=== PATIENT | male | born 1940 | race Caucasian/White ===

== ENCOUNTER → 2017-11-18 | Outpatient (CLI) | payer MEDICARE, BC ==
[~2017-11-18] MED LIST: CALCIUM CITRAT200 MG PO; FERROUS SULFATE65 MG PO; FOLIC ACID 40400 MCG PO; NEURONTIN600 MG/TAB; PRILOSEC 20MG20 MG PO; VITAMIN C500 MG PO; ZESTORETIC 12.51 TAB; [UNRECOGNIZED DRUG - OTHER] PO
[2017-11-18 10:43] LABS: HEMATOCRIT 41.6 % (42.0-52.0); HEMOGLOBIN 13.8 g/dl (13.5-18.0); MEAN CELL VOLUME 90 fl (80.0-100.0); MEAN CORPUSCULAR HEMOGLOBIN 30 pg (27.0-31.0); MEAN CORPUSCULAR HGB CONC 33 g/dl (33.0-37.0); MEAN PLATELET VOLUME 9.7 fl (7.4-10.4); PLATELET COUNT 178 K/mm3 (130-400); REDCELL DISTRIBUTION WIDTH-CV 14.4 % (11.5-14.5)
[2017-11-18 11:12] LABS: ERYTHROCYTE SEDIMENTATION RATE 1 mm/hr (0-30)
== END ==
LOC: COL.RAD 09:31
PROVIDERS: Orthopaedic Surgery
DX: M25.562 Pain in left knee (principal); Z96.653 Presence of artificial knee joint, bilateral
CPT/HCPCS: A9503